=== PATIENT | male | born 1990 | race African-American/Black ===

== ENCOUNTER 2021-05-25 03:42 | Emergency (ER) | payer MEDICAID, SELFPAY | END 2021-05-25 05:21 | disposition home or self-care (01) | LOC: ERS 03:42 | DX: R51.9 Headache, unspecified (principal); E11.9 Type 2 diabetes mellitus without complications; E78.5 Hyperlipidemia, unspecified; E78.00 Pure hypercholesterolemia, unspecified | CPT/HCPCS: 96372; 99284 ==